=== PATIENT | female | born 1980 | race Caucasian/White ===

== ENCOUNTER 2016-06-18 10:12 | Emergency (ER) | payer BC ==
[~2016-06-18] VITALS: Ht 162.6 cm; Wt 94.1 kg
[2016-06-18] MEDS ORDERED: AMOXICILLIN500 MG PO (10:38)
[2016-06-18] MEDS ORDERED: AFRIN,GENASAL D15 ML BOTH NARES (10:38)
[2016-06-18 10:48] VITALS: BP 119/94
== END 2016-06-18 10:49 | disposition home or self-care (01) ==
LOC: EME 10:12
DX: H66.93 Otitis media, unspecified, bilateral (principal); J06.9 Acute upper respiratory infection, unspecified
CPT/HCPCS: 99281; 99283